=== PATIENT | female | born 1960 | race Two or more races ===

== ENCOUNTER 2018-05-24 11:12 | Inpatient (IN) | payer OTHER ==
[~2018-05-24] VITALS: Ht 157.5 cm; Wt 71.7 kg
[2018-05-24] MEDS ORDERED: CRESTOR20 MG PO (13:01)
[2018-05-24] MEDS ORDERED: MULTI-VITAMIN1 EACH PO (13:01)
== END 2018-05-29 10:39 | disposition home or self-care (01) | DRG 581 ==
LOC: SURH 05-28 07:00 → O/R 05-28 09:18 → SURH 05-28 11:11
PROVIDERS: ADMIT Plastic Surgery
PROC: 0W0F0ZZ Alteration of Abdominal Wall, Open Approach (ICD-10-PCS; principal; 2018-05-28 07:00)
PROC: 0H0V0ZZ Alteration of Bilateral Breast, Open Approach (ICD-10-PCS; 2018-05-28 07:00)
DX: N62 Hypertrophy of breast (principal); E66.01 Morbid (severe) obesity due to excess calories; E65 Localized adiposity; M62.08 Separation of muscle (nontraumatic), other site; E78.49 Other hyperlipidemia; Z98.84 Bariatric surgery status